=== PATIENT | female | born 1990 | race Caucasian/White ===

== ENCOUNTER 2017-08-07 14:22 | Inpatient (IN) | payer OTHER, SELFPAY | END 2017-08-10 09:00 | disposition home or self-care (01) | DRG 775 | PROVIDERS: Admitting Provider Nurse Practitioner Obstetrics & Gynecology; Visit Provider Nurse Practitioner Obstetrics & Gynecology | DX: O69.81X0 Labor and delivery complicated by cord around neck, without compression, not applicable or unspecified (principal); Z37.0 Single live birth; Z3A.37 37 weeks gestation of pregnancy | CPT/HCPCS: 59409; 36415; 59025; 81001; 82800; 85014; 85018; 85025; 86850; 86900; 86901; 87086; C1758; J0290; J2405 ==

== ENCOUNTER → 2017-12-30 18:07 | Outpatient (CLI) | payer OTHER, MEDICAID, SELFPAY | PROVIDERS: PCP Internal Medicine Adolescent Medicine; Visit Provider Nurse Practitioner | DX: J06.9 Acute upper respiratory infection, unspecified (principal) ==

== ENCOUNTER 2018-04-22 20:02 | Observation (INO) ==
[2018-04-22 20:24] LABS: Basophils # 0.1 K/mm3 (0-0.2); Basophils % 0.4 % (0.1-2.0); Eosinophils # 0.6 K/mm3 (0.0-0.4); Eosinophils % 4.4 % (0.1-12.0); Hematocrit 45.2 % (37.0-47.0); Hemoglobin 15.1 g/dL (12.2-16.2); Lymphocytes # 2.1 K/mm3 (0.7-4.5); Lymphocytes % 16.3 K/mm3 (10-50); Mean Corpuscular HGB Conc 33.5 g/dL (31.8-35.4); Mean Corpuscular Hemoglobin 29.4 pg (27.0-31.2); Mean Corpuscular Volume 87.7 fl (81-99); Mean Platelet Volume 7.8 fl (7.4-10.4); Monocytes # 0.6 K/mm3 (0.1-1.0); Monocytes % 4.3 % (1.7-9.3); Neutrophils # 9.7 K/mm3 (1.8-7.8); Neutrophils % 74.6 % (37.0-80.0); Platelet Count 232 K/mm3 (142-424); Red Blood Count 5.15 M/mm3 (4.20-5.40)
--- NOTE | 2018-04-22 20:24 | Emergency Department Note ---
ED Disposition Clinical Impression: Bronchitis Reactive airway disease Qualifiers: Asthma severity: moderate Asthma persistence: persistent Asthma complication type: with acute exacerbation Qualified Code(s): J45.41 - Moderate persistent asthma with (acute) exacerbation Disposition: Admitted as Observation Condition on Discharge: Good Referrals: Bola Eckert MD [Primary Care Provider] - - Critical Care Critical Care Time: No Attestation: On 04/22/18, the high probability of a clinically significant, sudden or life threatening deterioration of the following system(s) required my full and direct attention, intervention and personal management. The time I documented below is in addition to time spent performing reported procedures but includes the following listed in this critical care notation. Medical Decision Making - Medical Records Medical records reviewed: Yes: I reviewed the patient's medical records. - Jan Inquiry Pt receiving controlled substance: No Vital Signs: 04/22/18 20:06 04/22/18 20:33 04/22/18 20:49 Temperature 98.2 F 98.0 F Temperature Source Oral Oral Pulse Rate 91 H Pulse Rate [Right Brachial] 105 H 96 H Respiratory Rate 20 20 Blood Pressure [Right Arm] 148/98 116/74 Blood Pressure Mean [Right Arm] 114 88 Blood Pressure Source [Right Arm] Automatic Cuff Automatic Cuff Blood Pressure Position [Right Arm] Supine Sitting 02 Sat by Pulse Oximetry 97 98 Oxygen Delivery Method Nasal Cannula Room Air Oxygen Flow Rate (LPM) 2 04/22/18 21:03 Temperature Temperature Source Pulse Rate Pulse Rate [Right Brachial] 84 Respiratory Rate Blood Pressure [Right Arm] 119/58 Blood Pressure Mean [Right Arm] 78 Blood Pressure Source [Right Arm] Automatic Cuff Blood Pressure Position [Right Arm] Supine 02 Sat by Pulse Oximetry 98 Oxygen Delivery Method Oxygen Flow Rate (LPM) - Lab Data Lab results reviewed: Yes: I reviewed the patient's lab results. Lab Results 04/22/18 20:03: WBC 13.0 H, RBC 5.15, Hgb 15.1, Hct 45.2, MCV 87.7, MCH 29.4, MCHC 33.5, RDW 12.0, Plt Count 232, MPV 7.8, Neut % (Auto) 74.6, Lymph % (Auto) 16.3, [place] % (Auto) 4.3, Eos % (Auto) 4.4, Baso % (Auto) 0.4, Neut # (Auto) 9.7 H, Lymph # (Auto) 2.1, [place] # (Auto) 0.6, Eos # (Auto) 0.6 H, Baso # (Auto) 0.1 04/22/18 20:03: Sodium 142, Potassium 3.6, Chloride 104, Carbon Dioxide 27, Anion Gap 14.6, BUN 9, Creatinine 0.89, Estimated Creat Clear 121, Estimated GFR 76, Est GFR ( Amer) 91, Glucose 115 H, Calcium 9.6, Total Bilirubin 0.5, AST 10 L, ALT 26, Alkaline Phosphatase 94, Total Protein 8.6 H, Albumin 4.3, Globulin 4.3 H, Albumin/Globulin Ratio 1.0 L 04/22/18 20:03: Lactate 0.9 Result diagrams: 04/22/18 20:03 04/22/18 20:03 Orders (Tests/Meds): ED MEDICATIONS Generic Name Dose Route Start Last Admin Trade Name Freq PRN Reason Stop Dose Admin Ceftriaxone Sodium 1 gm/ 50 mls @ 100 mls/hr 04/22/18 20:45 04/22/18 20:37 Sodium Chloride IV 05/06/18 20:44 100 mls/hr Q24H MARIA ELENA Administration Protocol Discontinued Medications Generic Name Dose Route Start Last Admin Trade Name Freq PRN Reason Stop Dose Admin Albuterol Sulfate 2 puffs 04/22/18 21:32 Proventil-Hfa 90mcg/Puff Inhaler 04/22/18 21:33 ONCE ONE Albuterol/Ipratropium 3 ml 04/22/18 20:16 04/22/18 20:33 Duoneb 3ml Neb 04/22/18 20:17 3 ml ONCE ONE Administration Methylprednisolone Sodium Succinate 125 mg 04/22/18 20:34 04/22/18 20:37 Solu-Medrol 125mg/2ml Vial IV 04/22/18 20:35 125 mg ONCE ONE Administration Miscellaneous 1 unit 04/22/18 21:31 Aerochamber/Optihaler MC 04/22/18 21:32 ONCE ONE Miscellaneous 1 unit 04/22/18 21:31 Aerochamber/Optihaler MC 04/22/18 21:32 ONCE ONE Morphine Sulfate 4 mg 04/22/18 21:18 04/22/18 21:19 Morphine 4mg/Ml Syringe IV 04/22/18 21:19 4 mg ONCE ONE Administration Ondansetron HCl 4 mg 04/22/18 21:18 04/22/18 21:19 Zofran 4mg/2ml Vial IV 04/22/18 21:19 4 mg ONCE ONE Administration ORDERS Category Date Time Status XR chest 2V Stat Exams 04/22/18 20:15 Taken Blood Culture Stat Micro 04/22/18 20:03 Received - Radiology Data #1 Image(s): Chest Image Reviewed: Yes I reviewed the patient's radiology image Preliminary Findings: Normal/NAD - Physician Consults Physician Consulted: eliel Reason -: Admission Resp/SOB HPI - General Chief Complaint: Shortness of Breath/Dyspnea Stated Complaint: SOA Time Seen by Provider: 04/22/18 20:15 Mode of Arrival: Family Vehicle Limitations: No Limitations Description of Symptoms (Recalled from ER Triage Doc. 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 Complaint: shortness of breath, pain with inspiration Onset (ago): day(s) Severity: moderate Exacerbating factors: lying flat Associated symptoms: cough Treatment prior to arrival: none - Related Data Home oxygen amount: none Home Medications Medication Instructions Recorded Confirmed levonorgestrel 20 mcg/24 hr (5 1 insert INTRAUTERI ONCE 09/25/17 04/22/18 years) intrauterine device buPROPion HCl [Bupropion Xl] 150 mg PO QAM 04/22/18 04/22/18 Allergies Allergy/AdvReac Type Severity Reaction Status Date / Time cefditoren Allergy Unknown UNKNOWN Verified 10/29/17 13:41 clarithromycin [From Biaxin] Allergy Unknown I-RASH Verified 10/29/17 13:41 ibuprofen Allergy Unknown JOINTS Verified 10/29/17 13:41 SWELL Sulfa (Sulfonamide Allergy Unknown SWELLING Verified 10/29/17 13:41 Antibiotics) [facility] History I have reviewed the patient's past medical history: Yes Medical History: Reports:: Anxiety, Depression Denies:: Asthma Laterality Cases: Bilateral: Tonsillectomy, Other Other Surgeries: Yes: Other Amputation: No Fractures: No - Social History Smoking Status: Current every day smoker Tobacco Type: cigarettes Alcohol Intake: never Substance Use Type: denies use - Psychiatric History Expresses thoughts of harming self/others: None Suicide Plan Description: No Plan Pschychiatric History:: Reports:: Anxiety, Depression Family Hx:: No significant family history, Diabetes, Cancer, Heart Attack, Thyroid Disorder, Hypertension Para: 1 ROS Obtained: Yes All systems reviewed & no additional complaints - Constitutional Constitutional: Denies fever(s) - Eyes Eyes: Denies change in vision - ENT Ears, Nose, Mouth, and Throat: Denies sore throat, Denies throat swelling - Cardiovascular Cardiovascular: Reports chest pain, Reports dyspnea - Respiratory Respiratory: Yes as per HPI, Yes cough, Yes non-productive cough, No coughing up blood, Yes wheezing - Gastrointestinal Gastrointestingal: Denies: abdominal pain - Genitourinary Female Genitourinary: Denies abnormal vaginal bleeding, Denies hematuria - Musculoskeletal Musculoskeletal: Denies joint pain, Denies joint swelling - Integumentary/Breasts Skin/Breast: Denies rash - Neurologic Neurologic: Denies seizure-like activity Physical Exam - General General appearance: alert - Head Head exam: normocephalic - Eye Eye exam: Present: PERRL, EOMI - ENT ENT exam: Present: mucous membranes dry - Neck Neck exam: Present: trachea midline - Respiratory Respiratory exam: Present: wheezes. Absent: respiratory distress - Cardiovascular Cardiovascular exam: Present: regular rate. Absent: systolic murmur - Abdominal Exam Abdominal exam: Present: soft - Extremities Exam Extremities exam: Absent: calf tenderness - Neurological Exam Neurological exam: Present: alert, oriented X3, CN II-XII intact - Psychiatric Psychiatric exam: Present: normal affect - Skin Skin exam: Absent: rash
[2018-04-22 20:33] LABS: Albumin Level 4.3 gm/dL (3.4-5.0); Anion Gap 14.6 mEq/L (5-15); Bilirubin,Total 0.5 mg/dL (0.2-1.0); Calcium 9.6 mg/dL (8.5-10.1); Globulin 4.3 gm/dl (1.3-3.2); Potassium 3.6 mmoL/L (3.5-5.1); Total Protein,Serum 8.6 gm/dL (6.4-8.2)
[2018-04-23 06:39] LABS: Basophils % 0.1 % (0.1-2.0); Eosinophils % 0.1 % (0.1-12.0); Hematocrit 41.8 % (37.0-47.0); Hemoglobin 13.9 g/dL (12.2-16.2); Lymphocytes # 0.6 K/mm3 (0.7-4.5); Lymphocytes % 7.1 K/mm3 (10-50); Mean Corpuscular HGB Conc 33.4 g/dL (31.8-35.4); Mean Corpuscular Hemoglobin 29.5 pg (27.0-31.2); Mean Corpuscular Volume 88.6 fl (81-99); Mean Platelet Volume 8.1 fl (7.4-10.4); Monocytes # 0.2 K/mm3 (0.1-1.0); Monocytes % 1.8 % (1.7-9.3); Neutrophils # 7.6 K/mm3 (1.8-7.8); Platelet Count 211 K/mm3 (142-424); Red Blood Count 4.72 M/mm3 (4.20-5.40); Red Cell Distribution Width 12.1 % (11.5-17.5); White Blood Count 8.3 K/mm3 (4.8-10.8)
[2018-04-23 06:50] LABS: Calcium 8.7 mg/dL (8.5-10.1)
--- NOTE | 2018-04-23 07:26 | Pharmacy Consult Notes ---
[facility] Pharmacy VTE Monitoring - Patient Demographics Admission date: 04/22/18 Report Date: 04/23/18 Time: 07:25 Allergies/Adverse Reactions: Patient Allergies cefditoren Allergy (Unknown, Verified 10/29/17 13:41) UNKNOWN clarithromycin [From Biaxin] Allergy (Unknown, Verified 10/29/17 13:41) I-RASH ibuprofen Allergy (Unknown, Verified 10/29/17 13:41) JOINTS SWELL Sulfa (Sulfonamide Antibiotics) Allergy (Unknown, Verified 10/29/17 13:41) SWELLING Height: 1.63 m Weight: 81.647 kg Patient Problems: Current Active Problems Bronchitis (Acute) - VTE Risk Labs: VTE Related Lab Results Hgb 13.9 g/dL (12.2-16.2) 04/23/18 05:45 Hct 41.8 % (37.0-47.0) 04/23/18 05:45 Plt Count 211 K/mm3 (142-424) 04/23/18 05:45 BUN 9 mg/dL (7-18) 04/22/18 20:03 Creatinine 0.73 mg/dL (0.55-1.02) 04/23/18 05:45 Estimated Creat Clear 148 mL/min (0-300) 04/23/18 05:45 Was VTE Risk Assessment Performed: No VTE Score: 3 VTE Risk Level: Low Risk - Prophylaxis VTE Prophylaxis Ordered?: Yes Types of VTE Prophylaxis: TEDS Knee High Location of Applied Device: Bilateral Lower Extremeties - VTE Diagnosis Confirmed Treatment or plan recommended: Continue Current Treatment
[2018-04-23 07:42] LABS: Lymphocytes % 6 % (10-50); Monocytes % 1 % (2-9); Neutrophils % 93 % (42-76); Total Cells Counted 100
--- NOTE | 2018-04-23 10:12 | H&P/Discharge Summary ---
General - General Admission date:: 04/22/18 Discharge date: 04/23/18 *Admission Date: 04/22/18 *Chief complaint: Shortness of breath *History of present illness: Patient is a 27-year-old female with no comorbidities who presents with worsening shortness of breath over 1-2 days. Initially presented to the ER where she was afebrile but in mild respiratory distress. Treated with breathing treatment and lab work obtained. Admitted to medical service for management overnight and observation. Continued breathing treatments helped with dyspnea. Mycoplasma antigen positive. Patient had no acute events overnight. Remained afebrile. Improved this morning. Denies any syncope, chest pain, hemoptysis, nausea or vomiting. Reports having a child at home who is sick with similar symptoms that presented 2 days before her symptoms began. Required no oxygen overnight. Chest x-ray obtained consistent with no focal airspace disease, increased perihilar markings, but no concern for pneumonia. Received dose of R ocephin in the emergency room. [facility] History I have reviewed the patient's past medical history: Yes Medical History: Reports:: Anxiety, Depression Denies:: Asthma, Cancer, Diabetes Mellitus Type 1, Diabetes Mellitus Type 2, MRSA Laterality Cases: Bilateral: Tonsillectomy, Other Other Surgeries: Yes: Other Amputation: No Fractures: No - *Social History Educational Level: Attended College Smoking Status: Current every day smoker Tobacco Type: cigarettes Alcohol Intake: never Substance Use Type: denies use Occupational Status: employed Housing: apartment Household Members: children - Psychiatric History Expresses thoughts of harming self/others: None Suicide Plan Description: No Plan Pschychiatric History:: Reports:: Anxiety, Depression *Family Hx:: No significant family history, Diabetes, Cancer, Heart Attack, Thyroid Disorder, Hypertension Para: 1 Review of Systems - Review of Systems Review of systems:: pertinent systems reviewed and negative unless documented below - *Neurologic Denies seizure-like activity Exam Vital signs and Labs for Last 24 Hours: Temp Pulse Resp BP Pulse Ox 98.1 F 86 18 127/68 93 L 04/23/18 07:43 04/23/18 07:43 04/23/18 07:43 04/23/18 07:43 04/23/18 07:43 Laboratory Results - last 24 hr 04/22/18 20:03: WBC 13.0 H, RBC 5.15, Hgb 15.1, Hct 45.2, MCV 87.7, MCH 29.4, MCHC 33.5, RDW 12.0, Plt Count 232, MPV 7.8, Neut % (Auto) 74.6, Lymph % (Auto) 16.3, [place] % (Auto) 4.3, Eos % (Auto) 4.4, Baso % (Auto) 0.4, Neut # (Auto) 9.7 H, Lymph # (Auto) 2.1, [place] # (Auto) 0.6, Eos # (Auto) 0.6 H, Baso # (Auto) 0.1 04/22/18 20:03: Sodium 142, Potassium 3.6, Chloride 104, Carbon Dioxide 27, Anion Gap 14.6, BUN 9, Creatinine 0.89, Estimated Creat Clear 121, Estimated GFR 76, Est GFR ( Amer) 91, Glucose 115 H, Calcium 9.6, Total Bilirubin 0.5, AST 10 L, ALT 26, Alkaline Phosphatase 94, Total Protein 8.6 H, Albumin 4.3, Globulin 4.3 H, Albumin/Globulin Ratio 1.0 L 04/22/18 20:03: Lactate 0.9 04/22/18 20:05: Troponin I < 0.02 04/22/18 20:05: Mycoplasma pneumon IgM Reactive A 04/22/18 20:05: C-Reactive Protein 3.8 H 04/22/18 20:05: ESR 25 H 04/23/18 05:45: WBC 8.3 D, RBC 4.72, Hgb 13.9, Hct 41.8, MCV 88.6, MCH 29.5, MCHC 33.4, RDW 12.1, Plt Count 211, MPV 8.1, Neut % (Auto) 91.0 H, Lymph % (Auto) 7.1 L, [place] % (Auto) 1.8, Eos % (Auto) 0.1, Baso % (Auto) 0.1, Neut # (Auto) 7.6, Lymph # (Auto) 0.6 L, [place] # (Auto) 0.2, Eos # (Auto) 0.0, Baso # (Auto) 0.0, Total Counted 100, Neutrophils % (Manual) 93 H, Lymphocytes % (Manual) 6 L, Monocytes % (Manual) 1 L, Platelet Estimate Normal 04/23/18 05:45: Sodium 142, Potassium 4.0, Chloride 106, Carbon Dioxide 24, Anion Gap 16.0 H, BUN 8, Creatinine 0.73, Estimated Creat Clear 148, Estimated GFR 95, Est GFR ( Amer) 115 D, Glucose 142 H D, Calcium 8.7, Magnesium 1.9 I & O for Last 24 hours: Intake & Output 04/20/18 04/21/18 04/22/18 04/23/18 23:59 23:59 23:59 23:59 Weight 81.647 kg 81.647 kg - *Routine HEENT Exam Head: Present: normocephalic, atraumatic Eye: Present: EOMI ENT: Present: mucous membranes moist - *Routine Neck Exam Present: supple, full ROM. Absent: JVD - *Routine Respiratory Exam Present: wheezes (Intermittent and expiratory with end inspiratory squeak). Absent: accessory muscle use, CTA bilaterally, prolonged expiratory phase, rales, crackles - *Routine Cardiovascular Exam Present: RRR, Normal S1, Normal S2. Absent: murmur - *Routine Abdominal Exam Present: soft, normoactive bowel sounds. Absent: tenderness - *Routine Rectal Exam Patient deferred: visual exam - *Routine Exam Patient deferred: external exam - *Routine Extremities Exam Absent: cyanosis, clubbing, edema - *Routine Skin Exam Present: intact. Absent: cyanosis, erythema - *Routine Neurological Exam Present: alert, oriented X3, CN II-XII intact. Absent: altered mental status Hospital Course Hospital Course: Admitted to medicine service, monitored overnight. Required no supplemental oxygen. Mycoplasma antigen returned positive. Initiated patient on oral Levaquin to complete 7 day course. Provided with inhaler and spacer. Instructed to utilize inhaler every 4 hours while awake. Remained hemodynamically stopped. Tolerating regular diet and oral medications without adverse event. Medically stable for discharge home. Results Labs on day of discharge: Labs from last 24 hours 04/23/18 04/23/18 04/22/18 05:45 05:45 20:05 WBC 8.3 D RBC 4.72 Hgb 13.9 Hct 41.8 MCV 88.6 MCH 29.5 MCHC 33.4 RDW 12.1 Plt Count 211 MPV 8.1 Neut % (Auto) 91.0 H Lymph % (Auto) 7.1 L [place] % (Auto) 1.8 Eos % (Auto) 0.1 Baso % (Auto) 0.1 Neut # (Auto) 7.6 Lymph # (Auto) 0.6 L [place] # (Auto) 0.2 Eos # (Auto) 0.0 Baso # (Auto) 0.0 Total Counted 100 Neutrophils % (Manual) 93 H Lymphocytes % (Manual) 6 L Monocytes % (Manual) 1 L Platelet Estimate Normal ESR 25 H Sodium 142 Potassium 4.0 Chloride 106 Carbon Dioxide 24 Anion Gap 16.0 H BUN 8 Creatinine 0.73 Estimated Creat Clear 148 Estimated GFR 95 Est GFR ( Amer) 115 D Glucose 142 H D Lactate Calcium 8.7 Magnesium 1.9 Total Bilirubin AST ALT Alkaline Phosphatase Troponin I C-Reactive Protein Total Protein Albumin Globulin Albumin/Globulin Ratio Mycoplasma pneumon IgM 04/22/18 04/22/18 04/22/18 20:05 20:05 20:05 WBC RBC Hgb Hct MCV MCH MCHC RDW Plt Count MPV Neut % (Auto) Lymph % (Auto) [place] % (Auto) Eos % (Auto) Baso % (Auto) Neut # (Auto) Lymph # (Auto) [place] # (Auto) Eos # (Auto) Baso # (Auto) Total Counted Neutrophils % (Manual) Lymphocytes % (Manual) Monocytes % (Manual) Platelet Estimate ESR Sodium Potassium Chloride Carbon Dioxide Anion Gap BUN Creatinine Estimated Creat Clear Estimated GFR Est GFR ( Amer) Glucose Lactate Calcium Magnesium Total Bilirubin AST ALT Alkaline Phosphatase Troponin I < 0.02 C-Reactive Protein 3.8 H Total Protein Albumin Globulin Albumin/Globulin Ratio Mycoplasma pneumon IgM Reactive A 04/22/18 04/22/18 04/22/18 20:03 20:03 20:03 WBC 13.0 H RBC 5.15 Hgb 15.1 Hct 45.2 MCV 87.7 MCH 29.4 MCHC 33.5 RDW 12.0 Plt Count 232 MPV 7.8 Neut % (Auto) 74.6 Lymph % (Auto) 16.3 [place] % (Auto) 4.3 Eos % (Auto) 4.4 Baso % (Auto) 0.4 Neut # (Auto) 9.7 H Lymph # (Auto) 2.1 [place] # (Auto) 0.6 Eos # (Auto) 0.6 H Baso # (Auto) 0.1 Total Counted Neutrophils % (Manual) Lymphocytes % (Manual) Monocytes % (Manual) Platelet Estimate ESR Sodium 142 Potassium 3.6 Chloride 104 Carbon Dioxide 27 Anion Gap 14.6 BUN 9 Creatinine 0.89 Estimated Creat Clear 121 Estimated GFR 76 Est GFR ( Amer) 91 Glucose 115 H Lactate 0.9 Calcium 9.6 Magnesium Total Bilirubin 0.5 AST 10 L ALT 26 Alkaline Phosphatase 94 Troponin I C-Reactive Protein Total Protein 8.6 H Albumin 4.3 Globulin 4.3 H Albumin/Globulin Ratio 1.0 L Mycoplasma pneumon IgM DS: Diagnosis - Discharge Diagnosis (1) Primary atypical pneumonia (PAP) due to Mycoplasma Status: Acute Problem details: Initiate levofloxacin 500 mg daily for 7 days. Follow-up in clinic in 1-2 weeks. (2) Bronchitis Status: Acute Problem details: Continue breathing treatments as ordered with albuterol MDI and spacer every 4 hours for the next 3 days, as needed thereafter. Discharge Medications - Medications for Discharge Home Medication List at Discharge: Continue levonorgestrel 20 mcg/24 hr (5 years) intrauterine device 1 insert INTRAUTERI ONCE Escitalopram Oxalate [Lexapro] 20 mg PO DAILY Disposition Disposition: Home, Self-Care
== END 2018-04-23 13:27 | disposition home or self-care (01) ==
LOC: 2ND 20:02 → ER 20:02 → 2ND 22:29
PROVIDERS: ADMIT Internal Medicine Adolescent Medicine; ATTEND Internal Medicine Adolescent Medicine
CPT/HCPCS: 36415; 71020; 71046; 80048; 80053; 83605; 83735; 84484; 85007; 85025; 85651; 86140; 86738; 87040; 94640; 96365; 96375; 99285; G0378; J2405

== ENCOUNTER 2018-12-18 09:31 | Outpatient (CLI) | payer OTHER, SELFPAY | END 2018-12-18 10:14 | disposition home or self-care (01) | PROVIDERS: Visit Provider Nurse Practitioner Family | DX: J06.9 Acute upper respiratory infection, unspecified (principal) | CPT/HCPCS: 96372 ==

== ENCOUNTER → 2020-02-24 12:16 | Outpatient (CLI) | payer OTHER, SELFPAY ==
--- NOTE | 2020-02-24 12:50 | XR_ITS ---
PROCEDURE: XR CHEST PORTABLE CLINICAL HISTORY: COVID TESTING Shortness of breath and runny nose COMPARISON: CXR2V XR chest 2V from 04/22/2018 FINDINGS: The cardiomediastinal silhouette and pulmonary vascularity are within normal limits. The lungs are clear without infiltrates, suspicious nodules, or pleural effusions. No acute bony abnormalities. IMPRESSION: No acute findings. Dictated by: Benito Jackson MD 02/24/2020 13:46 Electronically signed by Benito Jackson MD in [place] 02/24/2020 13:46
[2020-02-24 12:51] LABS: Adenovirus,PCR Not Detected (NotDetected); Chlamydophila Pneumoniae, PCR Not Detected (NotDetected); Coronavirus 19, PCR Not Detected (NotDetected); Coronavirus 229E Not Detected (NotDetected); Coronavirus NL63 Not Detected (NotDetected); Coronavirus OC43 Not Detected (NotDetected); Coronovirus HKU1,PCR Not Detected (NotDetected); Human Metapneumovirus Not Detected (NotDetected); Influenza A, PCR Not Detected (NotDetected); Influenza AH1, 2009 Not Detected (NotDetected); Influenza AH1, PCR Not Detected (NotDetected); Influenza AH3,PCR Not Detected (NotDetected); Influenza B, PCR Not Detected (NotDetected); Mycoplasma Pneumoniae, PCR Not Detected (NotDected); Parainfluenza 1, PCR Not Detected (NotDetected); Parainfluenza 2, PCR Not Detected (NotDetected); Parainfluenza 3, PCR Not Detected (NotDetected); Parainfluenza 4, PCR Not Detected (NotDetected); Respiratory Syncytial Virus Not Detected (NotDetected)
[2020-02-24 12:55] LABS: Basophils # 0.1 K/mm3 (0-0.2); Basophils % 0.5 % (0.1-2.0); Eosinophils # 0.5 K/mm3 (0.0-0.4); Eosinophils % 4.5 % (0.1-12.0); Hematocrit 46.7 % (37.0-47.0); Hemoglobin 16.5 g/dL (12.2-16.2); Lymphocytes % 20.2 % (10-50); Mean Corpuscular HGB Conc 35.3 g/dL (31.8-35.4); Mean Corpuscular Hemoglobin 31.2 pg (27.0-31.2); Mean Corpuscular Volume 88.5 fl (81-99); Mean Platelet Volume 8.2 fl (7.4-10.4); Monocytes # 0.5 K/mm3 (0.1-1.0); Monocytes % 4.4 % (1.7-9.3); Neutrophils # 7.1 K/mm3 (1.8-7.8); Neutrophils % 70.4 % (37.0-80.0); Platelet Count 221 K/mm3 (142-424); Red Blood Count 5.27 M/mm3 (4.20-5.40); Red Cell Distribution Width 12.5 % (11.5-17.5); White Blood Count 10.1 K/mm3 (4.8-10.8)
[2020-02-24 13:08] LABS: Alanine Aminotransferase 22 U/L (12-78); Albumin/Globulin Ratio 1.4 (1.1-1.8); Alkaline Phosphatase 81 U/L (38-126); Aspartate Amino Transferase 28 U/L (14-36); Bilirubin,Total 0.5 mg/dl (0.2-1.3); Blood Urea Nitrogen 9 mg/dl (7-17); Calcium 9.8 mg/dl (8.4-10.2); Carbon Dioxide 26 mmol/L (22.0-30.0); Chloride 101 mmol/L (98-107); Estimated Glomerular Filt Rate 98 ml/min (>60); GFR (African American) 119 ML/MIN (>60); Globulin 3.7 g/dL (1.3-3.2); Glucose 105 mg/dl (74-100); Sodium 138 mmol/L (136-145); Total Protein,Serum 8.7 g/dl (6.3-8.2)
[2020-02-24 14:43] LABS: Bordetella Pertussis Detected (NotDetected); Rhinovirus/Enterovirus Detected (NotDetected)
== END ==
PROVIDERS: PCP Internal Medicine Adolescent Medicine; Visit Provider Internal Medicine Adolescent Medicine
DX: Z20.828 Contact with and (suspected) exposure to other viral communicable diseases (principal); J18.0 Bronchopneumonia, unspecified organism
CPT/HCPCS: 36415; 71045; 80053; 85025; 87581; 87633; 87798

== ENCOUNTER → 2020-04-29 08:49 | Outpatient (CLI) | payer OTHER, SELFPAY ==
[2020-04-29 15:06] LABS: Coronavirus 19 IgG Antibody Negative (Negative); Coronavirus 19 IgM Antibody Negative (Negative)
[2020-04-29 15:44] LABS: Vitamin B12 835 pg/mL (239-931)
[2020-04-29 16:39] LABS: Hemoglobin A1C 5.6 % (4.0-6.0)
== END ==
PROVIDERS: PCP Internal Medicine Adolescent Medicine; Visit Provider Family Medicine
DX: Z01.84 Encounter for antibody response examination (principal)
CPT/HCPCS: 82607; 83036; 86328

== ENCOUNTER → 2020-05-14 18:06 | Outpatient (CLI) | payer OTHER, SELFPAY ==
[2020-05-17 16:06] LABS: Varicella-Zoster Ab, IgM <0.91 index (0.00-0.90)
[2020-05-18 15:21] LABS: Varicella Zoster IgG 969 index (Immune >165)
== END ==
PROVIDERS: PCP Internal Medicine Adolescent Medicine; Visit Provider Internal Medicine Adolescent Medicine
DX: Z79.899 Other long term (current) drug therapy (principal); Z01.84 Encounter for antibody response examination
CPT/HCPCS: 36415; 86787

== ENCOUNTER → 2020-06-10 16:03 | Outpatient (CLI) | payer OTHER, SELFPAY | PROVIDERS: PCP Nurse Practitioner Family; Visit Provider Nurse Practitioner Family | DX: R06.02 Shortness of breath (principal); R00.2 Palpitations | CPT/HCPCS: 93270 ==

== ENCOUNTER → 2020-06-15 13:38 | Outpatient (CLI) | payer OTHER, SELFPAY ==
--- NOTE | 2020-06-15 | CA_ITS ---
APPROVED REPORT EXAM: Comprehensive 2D, Doppler, and color-flow Echocardiogram [employer] Consultant: Yvonne Lozano RDCS Ht: 5 ft 4 in Wt: 202lbs BSA: 1.96 BP: 110/70 mmHg Indications: BUBBLE STUDY DONE APPEARS NEGATIVE PALPITATIONS M-Mode Dimensions RVDd 3.22 cm (0.9-2.6) LA Diam 2.30 cm (1.9-4.0) LVDd 4.22 cm (3.5-5.7) Ao Diam 2.98 cm (2.0-3.7) LVDs 2.90 cm (3.5-5.7) IVSd 0.93 cm (0.6-1.1) PWd 0.79 cm (0.6-1.1) EF (Teich) 59.50% FS 31.30% EDV (Teich) 79.50 mL ESV (Teich) 32.20 mL LV Diastology E Decel Time 227.00 (160-240 msec) E/A Ratio 1.4 MED E' 9.70 (< 7 cm/sec) E'/MED E' Ratio 6.99 (>14) LAT E' 12.40 (<10 cm/sec) E/LAT E' Ratio 5.47 (>14) Mitral Valve MV E Max Kody. 68.00 (40-130 cm/s) MV A Velocity 47.00 (40-130 cm/s) E/A Ratio 1.43 MV Decel. Time 227.00 (160-240 ms) MV PHT 66.00 ms Left Ventricle Left atrium is normal size, left ventricle is normal size, there is no concentric left ventricular hypertrophy, visually estimated ejection fraction 55% with no regional wall motion abnormality, diastolic parameters are within normal range. Right Ventricle Right atrium and right ventricular normal size and contractility. Atria Intra-atrial septum is intact, there is no flow across the atrial septum, agitated saline contrast study fails to identify intracardiac shunt. Aortic Valve Aortic valve is grossly normal, there is no aortic stenosis or aortic insufficiency. Mitral Valve Mitral valve is grossly normal, there is mild mitral regurgitation. Tricuspid Valve Tricuspid valve grossly normal, there is mild tricuspid regurgitation, tricuspid regurgitation jet velocity is inadequate for calculation of the right ventricular systolic pressure. Pulmonic Valve Pulmonic valve is poorly visualized. Great Vessels Aortic root is normal size. Pericardium No significant pericardial effusion noted. Conclusion 1. Normal left ventricular size, preserved left ventricular systolic function, visually estimated ejection fraction 55% with no regional wall motion abnormality, diastolic parameters are within normal range. 2. Mild mitral and tricuspid regurgitation. 3. Agitated saline contrast study fails to identify intracardiac shunt. Electronically signed by : Bar Manzano, 06/15/2020 18:15:28
== END ==
PROVIDERS: PCP Internal Medicine Adolescent Medicine; Visit Provider Nurse Practitioner Family
DX: R00.2 Palpitations (principal); R06.02 Shortness of breath
CPT/HCPCS: 93306

== ENCOUNTER → 2020-08-10 08:03 | Outpatient (CLI) | payer OTHER, SELFPAY ==
[2020-08-10 08:09] VITALS: BMI 35.2
== END ==
PROVIDERS: PCP Internal Medicine Adolescent Medicine; Visit Provider Nurse Practitioner
DX: T78.49XA Other allergy, initial encounter (principal)

== ENCOUNTER 2020-10-26 19:11 | Outpatient (CLI) | payer OTHER, SELFPAY ==
[2020-10-26 21:26] VITALS: BMI 32.5
== END 2020-10-26 21:29 | disposition home or self-care (01) ==
PROVIDERS: PCP Internal Medicine Adolescent Medicine; Visit Provider Emergency Medicine
DX: M54.5 Low back pain (principal)

== ENCOUNTER 2020-11-08 09:00 | Outpatient (RCR) | payer OTHER, SELFPAY ==
--- NOTE | 2020-10-28 17:27 | HMH.PTOPEV ---
PT Outpatient Evaluation Rehab PT Outpatient Evaluation Start: 10/28/20 16:30 Freq: Status: Active Protocol: Document 10/28/20 16:30 WAQAR (Rec: 10/28/20 17:27 [id number]) Electronically Signed By Khang Gonzalez, CLARA 10/28/20 16:30 Outpatient Therapy Subjective History Subjective History Pt. is a 30 year old female who presents to outpatient PT clinic w/ complaints of acute and constant mid to lower back P! of insidious onset 2 wks. ago. 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 Pt. denies hearing/ feeling a popping/ripping/ tearing sensation. Pt. reports any kind of movement worsens her symptoms, and some symptom relief w/ supine position. Pt. denies having recent diagnostic imaging nor injections for current pathology. Pt. reports having a history of LBP!, but nothing like this. Pt. denies radicular symptoms into BUEs/ BLEs. Current medications include a muscle relaxer and Effexor. PMH includes chronic LBP!, Tonsillectomy, and a fractured coccyx. Chief Complaint Pain,Spasms,Stiff,Swelling Symptom Type Ache,Sharp,Dull Symptoms Relieved By Rest/Positioning,Ice, Prescription Meds Symptoms Aggravated By Bending/Stooping,Physical Activity,Twisting,Walking, Lifting,Sneeze/Coughing Prior Functional Limitations None Current Functional Limitations Reaching,Lifting,Housework, Dressing,Sleeping,Squatting, Recreation Activity,Walking, Bending/Stooping Symptom Description Constant and Continuous Level of pain today (0-10) 5 Pain scale - at its best (0-10) 2 Pain scale - at its worst (0-10) 8 Lumbopelvic Eval Posture Thoracic Spine Posture Standing Position Neutral Lumbar Spine Posture Standing Position Neutral Assistive device Assistive Devices None / NA Gait Observation General Gait Pattern Observation Hips Posterior to B
== END 2020-11-29 14:26 | disposition home or self-care (01) ==
LOC: PT.CARL 09:00
PROVIDERS: Visit Provider Internal Medicine Adolescent Medicine
DX: M54.5 Low back pain (principal)
CPT/HCPCS: 97010; 97014; 97110; 97140; 97163; G0283

== ENCOUNTER → 2020-11-25 09:20 | Outpatient (CLI) | payer OTHER, SELFPAY ==
[2020-11-25 09:20] VITALS: BMI 25.8
--- NOTE | 2020-11-25 09:25 | PC.NURSE ---
PATIENT STATES SHE HAS TAKEN ROCEPHINE IN THE PAST WITH NO REACTIONS
== END ==
PROVIDERS: PCP Internal Medicine Adolescent Medicine; Visit Provider Nurse Practitioner
DX: J06.9 Acute upper respiratory infection, unspecified (principal)

== ENCOUNTER → 2021-09-14 17:22 | Outpatient (CLI) | payer OTHER, SELFPAY | PROVIDERS: PCP Internal Medicine Adolescent Medicine; Visit Provider Nurse Practitioner | DX: Z11.52 Encounter for screening for COVID-19 (principal) ==

== ENCOUNTER → 2021-09-29 11:05 | Outpatient (CLI) | payer OTHER, SELFPAY ==
[2021-09-29 12:48] LABS: Basophils # 0.1 K/mm3 (0-0.2); Basophils % 1.6 % (0.1-2.0); Eosinophils # 0.3 K/mm3 (0.0-0.4); Eosinophils % 4.2 % (0.1-12.0); Hematocrit 41.1 % (37.0-47.0); Hemoglobin 14.1 g/dL (12.2-16.2); Lymphocytes # 2.7 K/mm3 (0.7-4.5); Lymphocytes % 37.3 % (10-50); Mean Corpuscular HGB Conc 34.3 g/dL (31.8-35.4); Mean Corpuscular Hemoglobin 30.8 pg (27.0-31.2); Mean Corpuscular Volume 89.9 fl (81-99); Mean Platelet Volume 8.9 fl (7.4-10.4); Monocytes # 0.4 K/mm3 (0.1-1.0); Monocytes % 5.4 % (1.7-9.3); Neutrophils # 3.8 K/mm3 (1.8-7.8); Neutrophils % 51.7 % (37.0-80.0); Platelet Count 255 K/mm3 (142-424); Red Blood Count 4.58 M/mm3 (4.20-5.40); Red Cell Distribution Width 12.4 % (11.5-17.5); White Blood Count 7.4 K/mm3 (4.8-10.8)
[2021-09-29 12:53] LABS: Alanine Aminotransferase 36 U/L (12-78); Albumin Level 4.2 g/dl (3.5-5.0); Albumin/Globulin Ratio 1.6 (1.1-1.8); Alkaline Phosphatase 43 U/L (38-126); Anion Gap 6.2 mEq/L (5-15); Aspartate Amino Transferase 35 U/L (14-36); Bilirubin,Total 0.5 mg/dl (0.2-1.3); Blood Urea Nitrogen 9 mg/dl (7-17); Carbon Dioxide 30 mmol/L (22.0-30.0); Chloride 104 mmol/L (98-107); Estimated Glomerular Filt Rate 98 ml/min (>60); GFR (African American) 118 ML/MIN (>60); Globulin 2.6 g/dL (1.3-3.2); Glucose 95 mg/dl (74-100); Potassium 4.2 mmoL/L (3.5-5.1); Sodium 136 mmol/L (136-145); Total Protein,Serum 6.8 g/dl (6.3-8.2)
[2021-09-29 12:59] LABS: C-Reactive Protein 2.2 mg/L (0-4)
--- NOTE | 2021-09-29 13:04 | XR_ITS ---
FINAL REPORT CLINICAL HISTORY: left foot pain, plantars wart on 1st metatarsal FINDINGS: LEFT FOOT Three views of the left foot demonstrate no acute fracture or dislocation. The visualized joint spaces are normally aligned. The soft tissues are unremarkable. IMPRESSION: No acute bony abnormality. Reviewed, Interpreted and Dictated by Trev Olivarez III, MD Transcribed by Nirmal Gomez Authenticated by Trev Olivarez III, MD on 09/29/2021 01:48:38 PM [facility]
[2021-09-29 13:37] LABS: Erythrocyte Sedimentation Rate 11 mm/hr (0-20)
== END ==
PROVIDERS: PCP Internal Medicine Adolescent Medicine; Visit Provider Nurse Practitioner Family
DX: M79.672 Pain in left foot (principal); L97.529 Non-pressure chronic ulcer of other part of left foot with unspecified severity
CPT/HCPCS: 36415; 73630; 80053; 85025; 85651; 86140

== ENCOUNTER 2022-02-26 17:38 | Emergency (ER) | payer OTHER, SELFPAY ==
[2022-02-26 17:40] VITALS: BP 131/71; PULSE 86; RESP 19; TEMP 36.7; O2SAT 98; BMI 34.3
--- NOTE | 2022-02-26 17:50 | HMH.EDUTC ---
[facility] [place] Clinical Impression: Acute maxillary sinusitis Qualifiers: Recurrence: non-recurrent Qualified Code(s): J01.00 - Acute maxillary sinusitis, unspecified Disposition: Home, Self-Care Condition on Discharge: Good Instructions: DI for Sinusitis Additional Instructions: Start antibiotic patient to take as ordered for a full length of time even if you feel better. Sinus infections do not get better overnight. It may take 2-3 days to notice much improvement so be sure to use conservative measures as discussed for symptoms. Flonase 1 spray each nostril daily to help with nasal congestion, sinus and ear pressure/information Increase fluids Humidifier/vaporizer as needed Tylenol and ibuprofen as needed for fever or pain. If symptoms do not improve or get worse return or be seen in the ER Follow-up with primary care this week Prescriptions: Azithromycin [Zithromax 250mg tab] 250 mg PO DIRECTED #6 tab Transmission Status: Pending to [facility] Referrals: Bola Eckert MD [Primary Care Provider] - Time of Disposition: 17:53 Medical Decision Making - Jan Inquiry Pt receiving controlled substance: No Vital Signs: 02/26/22 17:40 Temperature 98.0 F Temperature Source Oral Pulse Rate [Right Brachial] 86 Respiratory Rate 19 Blood Pressure [Right Arm] 131/71 Blood Pressure Mean [Right Arm] 91 Blood Pressure Source [Right Arm] Automatic Cuff Blood Pressure Position [Right Arm] Sitting 02 Sat by Pulse Oximetry 98 Oxygen Delivery Method Room Air Orders (Tests/Meds): ED MEDICATIONS Generic Name Dose Route Start Last Admin Trade Name Freq PRN Reason Stop Dose Admin Dexamethasone Sodium Phosphate 4 mg 02/26/22 17:49 Dexamethasone 4mg/Ml 1ml Vial IM 02/26/22 17:50 ONCE [place] [facility] [place] - General Chief complaint: Urgent [facility] Stated complaint: poss sinus inf Time Seen by Provider: 02/26/22 17:50 Mode of Arrival: Ambulatory Source of Information: Patient Limitations: No Limitations Description of Symptoms (Recalled from Triage Doc. by RN): PATIENT C/O POSSIBLE SINUS INFECTION SINCE SUNDAY HEENT Symptoms (Recalled from RN notes): Yes Resp Symptoms (Recalled from RN notes): No Skin Symptoms (Recalled from RN notes): No MS Symptoms (Recalled from RN notes): No Functional Status (Recalled from RN notes): WNL - History of Present Illness Provider Complaint: 31 yr old female presents for sinu congestion,pressure, cough and sore throat. - Related Data Home Medications Medication Instructions Recorded Confirmed venlafaxine 75 mg capsule,extended 75 mg PO DAILY 09/28/21 02/26/22 release 24 hr Previous Rx's Medication Instructions Recorded Azithromycin [Zithromax 250mg 250 mg PO DIRECTED #6 tab 02/26/22 tab] Allergies Allergy/AdvReac Type Severity Reaction Status Date / Time levofloxacin Allergy Intermediate ITCHING Verified 09/28/21 14:51 cefditoren Allergy Unknown UNKNOWN Verified 09/28/21 14:51 clarithromycin [From Biaxin] Allergy Unknown I-RASH Verified 09/28/21 14:51 ibuprofen Allergy Unknown JOINTS Verified 09/28/21 14:51 SWELL Sulfa (Sulfonamide Allergy Unknown SWELLING Verified 09/28/21 14:51 Antibiotics) - Worker's Comp Is this a Worker's Comp case?: No [facility] History - Hepatitis A Screen Attestation statement:: This patient has been screened for Hepatitis A risk factors. I have reviewed the patient's past medical history: Yes Medical History: Reports:: Anxiety, Depression Denies:: Asthma, Cancer, Diabetes Mellitus Type 1, Diabetes Mellitus Type 2, MRSA Laterality Cases: Bilateral: Tonsillectomy, Other Other Surgeries: Yes: Cholecystectomy, Other Amputation: No Fractures: No - Social History Smoking Status: Current every day smoker Tobacco Type: cigarettes Alcohol Intake: never Substance Use Type: denies use Occupational Status: employed Housing: apartment Household Members: children
[2022-02-26 17:55] VITALS: BP 131/71; PULSE 86; RESP 19; TEMP 36.7; O2SAT 98
== END 2022-02-26 17:57 | disposition home or self-care (01) ==
PROVIDERS: Emergency Provider Nurse Practitioner Family; PCP Internal Medicine Adolescent Medicine
DX: J01.00 Acute maxillary sinusitis, unspecified (principal)
CPT/HCPCS: 96372; 99212; G0463

== ENCOUNTER → 2022-06-28 13:57 | Outpatient (CLI) | payer OTHER, SELFPAY ==
--- NOTE | 2022-06-28 14:04 | US_ITS ---
PROCEDURE INFORMATION: Exam: US Left Breast, Complete Exam date and time: 06/28/2022 2:13 PM Age: 31 years old Clinical indication: Palpable Lt breast mass TECHNIQUE: Imaging protocol: Complete ultrasound of all four quadrants of the Left breast and the retroareolar regions, including ultrasound of the axilla when performed. COMPARISON: No relevant prior studies available. FINDINGS: Breast: Sonographic images of the left breast including the retroareolar region, all 4 quadrants and the axilla do not demonstrate any solid . Few scattered subcentimeter cysts are present including a 0.6 cm cluster of microcysts in the 12 o'clock axis 3 cm from the nipple where the patient reports a palpable abnormality. In a form the echogenic subcutaneous 0.5 cm mass in the 12 o'clock axis 5 cm from the nipple is consistent with the lipoma. No architectural distortion or acoustical shadowing. No skin thickening or axillary adenopathy. IMPRESSION: Palpable abnormality in the left breast corresponds sonographically to subcentimeter cystic change. A diagnostic left mammogram is recommended for correlative purposes. ASSESSMENT: BI-RADS Category 0: Incomplete- Need Additional Imaging Evaluation and/or Prior Mammograms for Comparison
== END ==
PROVIDERS: PCP Internal Medicine Adolescent Medicine; Visit Provider Nurse Practitioner Family
DX: N63.21 Unspecified lump in the left breast, upper outer quadrant (principal)
CPT/HCPCS: 76641

== ENCOUNTER → 2022-07-20 13:49 | Outpatient (CLI) | payer OTHER, SELFPAY ==
--- NOTE | 2022-07-20 13:52 | MM_ITS ---
PROCEDURE INFORMATION: Exam: Bilateral Diagnostic Breast Tomosynthesis Exam date and time: 07/20/2022 1:46 PM Age: 31 years old Clinical indication: Left breast palpable lump TECHNIQUE: Imaging protocol: Bilateral Diagnostic tomosynthesis and 2D mammography including computer-aided detection (CAD) when performed. Unilateral or bilateral exam. COMPARISON: Non FINDINGS: MAMMOGRAPHY: Breast composition: The breasts are heterogeneously dense, which may obscure small masses. A skin marker was placed over the palpable abnormality in the left 12 o'clock axis. The spot compression views demonstrate normal overlapping fibroglandular structures. There is no stellate mass, architectural distortion or suspicious microcalcifications in either breast to suggest malignancy. No skin thickening or axillary adenopathy. Sonogram performed 06/28/2022 did not demonstrate any suspicious findings. IMPRESSION: Palpable abnormality in the left breast corresponds to dense fibroglandular structures and underlying subcentimeter cystic change.Further evaluation of a palpable abnormality should be based on clinical grounds regardless of radiographic findings or lack thereof.Annual bilateral mammographic screening is recommended to commence at the age of 40 unless otherwise clinically indicated. ASSESSMENT: BI-RADS Category 2: Benign
== END ==
PROVIDERS: PCP Internal Medicine Adolescent Medicine; Visit Provider Nurse Practitioner Family
DX: N63.21 Unspecified lump in the left breast, upper outer quadrant (principal)
CPT/HCPCS: 77062; 77066; G0279

== ENCOUNTER → 2023-04-06 23:31 | Outpatient (CLI) | payer OTHER, SELFPAY ==
[2023-04-06 21:00] LABS: Amphetamine/Metha Screen,Urine Positive ng/ml (<1000)
[2023-04-06 21:01] LABS: Barbiturates Screen,Urine Negative ng/ml (<200); Benzodiazepines Screen,Urine Negative ng/ml (<200)
[2023-04-06 21:02] LABS: Cannabinoid Screen,Urine Negative ng/ml (<50)
[2023-04-06 21:03] LABS: Cocaine Screen,Urine Negative ng/ml (<300)
[2023-04-06 21:04] LABS: Opiate Screen,Urine Negative ng/ml (<300); Phencyclidine Screen,Urine Negative ng/ml (<25)
[2023-04-06 21:08] LABS: Methadone Screen,Urine Negative ng/ml (<300)
== END ==
PROVIDERS: PCP Physician Assistant; Visit Provider Nurse Practitioner Psychiatric/Mental Health
DX: Z91.89 Other specified personal risk factors, not elsewhere classified (principal); Z79.899 Other long term (current) drug therapy
CPT/HCPCS: 80305

== ENCOUNTER → 2023-04-24 16:09 | Outpatient (CLI) | payer OTHER, SELFPAY ==
[2023-04-24 12:35] LABS: Basophils # 0.1 K/mm3 (0-0.2); Basophils % 0.9 % (0.1-2.0); Eosinophils # 0.7 K/mm3 (0.0-0.4); Eosinophils % 9.7 % (0.1-12.0); Hemoglobin 14.4 g/dL (12.2-16.2); Lymphocytes # 2.3 K/mm3 (0.7-4.5); Lymphocytes % 33.1 % (10-50); Mean Corpuscular HGB Conc 34.2 g/dL (31.8-35.4); Mean Corpuscular Hemoglobin 30.4 pg (27.0-31.2); Mean Corpuscular Volume 88.9 fl (81-99); Monocytes # 0.5 K/mm3 (0.1-1.0); Monocytes % 7.4 % (1.7-9.3); Neutrophils # 3.4 K/mm3 (1.8-7.8); Neutrophils % 48.8 % (37.0-80.0); Platelet Count 266 K/mm3 (142-424); Red Blood Count 4.73 M/mm3 (4.20-5.40); Red Cell Distribution Width 12.5 % (11.5-17.5); White Blood Count 6.9 K/mm3 (4.8-10.8)
[2023-04-24 12:52] LABS: Alanine Aminotransferase 28 U/L (12-78); Albumin Level 3.9 g/dl (3.5-5.0); Albumin/Globulin Ratio 1.3 (1.1-1.8); Alkaline Phosphatase 68 U/L (38-126); Anion Gap 12.7 mEq/L (5-15); Aspartate Amino Transferase 26 U/L (14-36); Bilirubin,Total 0.2 mg/dl (0.2-1.3); Blood Urea Nitrogen 9 mg/dl (7-17); Carbon Dioxide 25 mmol/L (22.0-30.0); Chloride 105 mmol/L (98-107); Chol/HDL Ratio 2.6 (1-3.5); Cholesterol 170 mg/dl (140-200); Estimated Glomerular Filt Rate 83 ml/min (>60); GFR (African American) 100 ML/MIN (>60); Globulin 2.9 g/dL (1.3-3.2); Glucose 99 mg/dl (74-100); HDL Cholesterol 65 mg/dl (40-60); Potassium 3.7 mmoL/L (3.5-5.1); Sodium 139 mmol/L (136-145); Total Protein,Serum 6.8 g/dl (6.3-8.2); Triglycerides 55 mg/dl (30-150); VLDL Cholesterol 11 mg/dL (0-40)
[2023-04-24 13:05] LABS: Direct LDL Cholesterol 84.19 mg/dL (100-129)
[2023-04-24 13:11] LABS: 25-OH Vitamin D, Total 30.5 ng/mL (30-100)
[2023-04-24 13:18] LABS: Triiodothryronine (T3) Uptake 31 % (23.5-40.5)
[2023-04-24 13:19] LABS: Free Thyroxine Index 3.6 ug/dL (5.93-13.13); T4 (Thyroxine) 11.7 ug/dl (5.53-11.0)
[2023-04-24 13:44] LABS: Vitamin B12 974 pg/mL (239-931)
[2023-04-26 10:44] LABS: Thyroid Peroxidase Antibodies <9 IU/mL (0-34)
[2023-04-27 19:35] LABS: Thyroid Stimulating Immunoglob <0.10 IU/L (0.00-0.55)
== END ==
PROVIDERS: PCP Physician Assistant; Visit Provider Physician Assistant
DX: F41.9 Anxiety disorder, unspecified (principal); R89.9 Unspecified abnormal finding in specimens from other organs, systems and tissues; E66.9 Obesity, unspecified; Z68.34 Body mass index [BMI] 34.0-34.9, adult; Z79.899 Other long term (current) drug therapy
CPT/HCPCS: 80053; 80061; 82306; 82607; 84436; 84443; 84445; 84479; 85025; 86376

== ENCOUNTER → 2023-05-10 13:45 | Outpatient (CLI) | payer OTHER, SELFPAY ==
--- NOTE | 2023-05-10 13:45 | US_ITS ---
FINAL REPORT CLINICAL HISTORY: Hypothyroidism COMPARISON: None FINDINGS: THYROID ULTRASOUND: The right lobe of the thyroid gland measures 2.8 x 2.1 x 3.4 cm in size. There is a single nodule in the right lobe of the thyroid, hypoechoic, solid, and in the lower pole of the thyroid. This is classified as a TI-RADS category 4 nodule. The left lobe of the thyroid gland measures 3.7 x 1.6 x 1.4 cm in size. The echotexture is unremarkable, without evidence of a nodule in the left lobe. The isthmus of the thyroid is normal in appearance and measures 2 mm in thickness. IMPRESSION: Single 3.4 cm nodule in the right lobe of the thyroid gland, a TI-RADS category 4 nodule. Because of size of the nodule, no follow-up is required at this time. Reviewed, Interpreted and Dictated by Ray Metz MD Transcribed by Yanely Norris Authenticated and [facility]
== END ==
PROVIDERS: PCP Physician Assistant; Visit Provider Physician Assistant
DX: E03.9 Hypothyroidism, unspecified (principal)
CPT/HCPCS: 76536

== ENCOUNTER → 2023-05-23 07:44 | Outpatient (CLI) | payer OTHER, SELFPAY | PROVIDERS: PCP Physician Assistant; Visit Provider Physician Assistant | DX: E04.1 Nontoxic single thyroid nodule (principal) ==

== ENCOUNTER → 2023-06-08 10:42 | Outpatient (CLI) | payer OTHER, SELFPAY ==
--- NOTE | 2023-06-08 10:43 | MM_ITS ---
PROCEDURE INFORMATION: Exam: MG Bilateral Screening 3D Mammography Exam date and time: 06/08/2023 10:48 AM Age: 32 years old Clinical indication: Screening examination; Additional info: Breast cancer screening . Family history of breast carcinoma. TECHNIQUE: Imaging protocol: Bilateral Screening tomosynthesis and 2D mammography including computer-aided detection (CAD) when performed. COMPARISON: 1. MG MM DIG MAMM BI DX W/CAD 07/20/2022 1:46 PM 2. US BREAST LT COMPLETE 06/28/2022 2:13 PM FINDINGS: MAMMOGRAPHY: Breast composition: The breasts are heterogeneously dense, which may obscure small masses. Mass: No suspicious masses. Architectural distortion: No suspicious distortion. Calcifications: No suspicious calcifications. Asymmetric density: None. Skin thickening: None. Axillary adenopathy: None. IMPRESSION: 1. No mammographic evidence of malignancy. Annual screening is recommended unless otherwise clinically indicated. 2. Given the reported risk factors for this patient, a breast cancer risk assessment may prove useful for further evaluation. ASSESSMENT: BI-RADS Category 1: Negative
== END ==
PROVIDERS: PCP Physician Assistant; Visit Provider Physician Assistant
DX: Z12.31 Encounter for screening mammogram for malignant neoplasm of breast (principal)
CPT/HCPCS: 77063; 77067

== ENCOUNTER 2023-07-02 09:45 | Emergency (ER) | payer OTHER, SELFPAY ==
[2023-07-02 10:00] VITALS: BP 141/77; PULSE 73; RESP 18; TEMP 37; O2SAT 97; BMI 33.1
--- NOTE | 2023-07-02 10:09 | EXP.UTC ---
Discharge Plan Disposition Patient Disposition: Home, Self-Care Condition: Good Prescriptions Prescriptions: New prednisone 10 mg tablet 10 mg PO BID 5 Days Qty: 10 0RF amoxicillin [amoxicillin] 875 mg tablet 875 mg PO Q12H Qty: 20 0RF [id number]-fzzugditw-MP [Bromfed DM] 2-30-10 mg/5 mL Syrup 5 ml PO Q6H PRN (Reason: Cough) Qty: 240 0RF No Action vilazodone [Viibryd] 40 mg tablet 40 mg PO DAILY Qty: 30 2RF Rx Instructions: must administer with a meal/food dextroamphetamine-amphetamine [Adderall XR] 20 mg capsule,extended release 24hr 20 mg PO DAILY Qty: 30 0RF levothyroxine [Synthroid] 50 mcg tablet 50 mcg PO DAILY Qty: 30 3RF Referrals Follow up/Referrals: Lakeshia Diego PA [Primary Care Provider] - See instructions Activity Restrictions/Add. Instructions Additional Instructions/Restrictions: Drink plenty of fluids. Take tylenol or ibuprofen for pain or fever. Take the medications as directed. Follow up with your regular doctor. GO TO THE ER FOR ANY WORSENING SYMPTOMS Clinical Impressions Clinical Impression: Bronchitis, Sinusitis Stand Alone Forms Stand Alone Forms: Work/School Release Instructions Patient Instructions: DI for Sinusitis Discharge ED Provider: Diony Tian [facility] General Stated complaint: congestion, cough, sore throat Time Seen by Provider: 07/02/23 10:09 Related Data Previous Rx's Medication Instructions Recorded levothyroxine 50 mcg tablet 50 mcg PO DAILY #30 tabs 04/30/23 (Synthroid) amoxicillin 875 mg tablet 875 mg PO Q12H #20 tabs 07/02/23 sgbgnftxqcdebax-djjrnnumpiqmrpg-PR 5 ml PO Q6H PRN Cough #240 mL 07/02/23 2 mg-30 mg-10 mg/5 mL oral syrup (Bromfed DM) dextroamphetamine-amphetamine ER 20 mg PO DAILY #30 caps 07/02/23 20 mg 24hr capsule,extend release (Adderall XR) prednisone 10 mg tablet 10 mg PO BID 5 days #10 tabs 07/02/23 vilazodone 40 mg tablet (Viibryd) 40 mg PO DAILY #30 tabs 07/02/23 Allergies Allergy/AdvReac Type Severity Reaction Status Date / Time levofloxacin Allergy Intermediate ITCHING Verified 07/02/23 10:11 cefditoren Allergy Unknown UNKNOWN Verified 07/02/23 10:11 clarithromycin [From Biaxin] Allergy Unknown I-RASH Verified 07/02/23 10:11 ibuprofen Allergy Unknown JOINTS Verified 07/02/23 10:11 SWELL Sulfa (Sulfonamide Allergy Unknown SWELLING Verified 07/02/23 10:11 Antibiotics) [facility] Disclaimer: The information contained in this section may have been updated after the patient was seen, as this information can be updated by other users. Medical History (Updated 07/02/23 @ 10:25 by Diony Tian APRN) Anxiety Generalized anxiety disorder GERD (gastroesophageal reflux disease) Thyroid disease Surgical History History of cholecystectomy Hx of tonsillectomy Social History Smoking Status: Current every day smoker tobacco type: e-cigarettes alcohol intake: current substance use type: denies use current occupational status: employed Travel in the last 8 weeks: None household members: children housing: apartment number of children: 1 ROS Obtained: Yes All systems reviewed & no additional complaints except as documented Constitutional Constitutional: Reports poor appetite Eyes Eyes: Reports system reviewed and no additional complaints, except as documented ENT Ears, Nose, Mouth, and Throat: Reports as per HPI Cardiovascular Cardiovascular: Reports system reviewed and no additional complaints, except as documented and Denies chest pain Respiratory Respiratory: Denies shortness of breath, Reports chest congestion, Reports cough, Denies stridor and Denies wheezing Gastrointestinal Gastrointestingal: Reports system reviewed and no additional complaints, except as documented; Denies abdominal pain, diarrhea or vomiting Musculoskel
[2023-07-02 10:22] LABS: UTC Strep Screen (Rapid) Negative (Negative)
[2023-07-02 10:45] VITALS: BP 141/77; PULSE 73; RESP 18; TEMP 37; O2SAT 97
[2023-07-02 13:37] LABS: Influenza A, PCR Not Detected (NotDetected); Influenza B, PCR Not Detected (NotDetected)
[2023-07-02 14:05] LABS: Coronavirus 19, PCR Detected (NotDetected)
== END 2023-07-02 10:45 | disposition home or self-care (01) ==
PROVIDERS: Emergency Provider Nurse Practitioner Family; PCP Physician Assistant
DX: U07.1 COVID-19 (principal); J01.90 Acute sinusitis, unspecified; J20.9 Acute bronchitis, unspecified; R07.0 Pain in throat; R09.81 Nasal congestion; R05.9 Cough, unspecified; K21.9 Gastro-esophageal reflux disease without esophagitis; E03.9 Hypothyroidism, unspecified; F17.290 Nicotine dependence, other tobacco product, uncomplicated
CPT/HCPCS: 87636; 87880; 99212; 99214; G0463

== ENCOUNTER 2023-08-10 18:23 | Emergency (ER) | payer OTHER, SELFPAY ==
[2023-08-10] VITALS (7 sets, daily range): BP systolic 116–139; BP diastolic 66–84; PULSE 68–110; RESP 20–22; TEMP 36.6–36.7; O2SAT 96–100; BMI 34.3
--- NOTE | 2023-08-10 18:33 | PC.NURSE ---
Dr. Matute at bedside
--- NOTE | 2023-08-10 18:35 | CT_ITS ---
PROCEDURE INFORMATION: Exam: CT Abdomen And Pelvis With Contrast Exam date and time: 08/10/2023 7:05 PM Age: 32 years old Clinical indication: Abdominal pain; Additional info: Periumbilical pain TECHNIQUE: Imaging protocol: Computed tomography of the abdomen and pelvis with contrast. Radiation optimization: All CT scans at this facility use at least one of these dose optimization techniques: automated exposure control; mA and/or kV adjustment per patient size (includes targeted exams where dose is matched to clinical indication); or iterative reconstruction. Contrast material: ISOVUE; Contrast volume: 75 ml; Contrast route: IV; REPORTING DATA: Count of CT and Cardiac NM exams in prior 12 months: This patient has received 0 known CTs and 0 known cardiac nuclear medicine studies in the 12 months prior to the current study. COMPARISON: CR XR CHEST PORTABLE 02/24/2020 13:00 FINDINGS: Lungs: Minimal bibasilar atelectasis. Liver: Normal. No mass. Gallbladder and bile ducts: Gallbladder is absent. Pancreas: Normal. No ductal dilation. Spleen: Normal. No splenomegaly. Adrenal glands: Normal. No mass. Kidneys and ureters: Nonobstructing right renal calculus. Stomach and bowel: Liquid fecal contents of the colon suggesting diarrhea. Bowel wall thickening of portions of small bowel. There are dilated segments of small bowel without a transition point. Appendix: Unremarkable appendix. Intraperitoneal space: Unremarkable. No free air. No significant fluid collection. Vasculature: Unremarkable. No abdominal aortic aneurysm. Lymph nodes: Unremarkable. No enlarged lymph nodes. Urinary bladder: Unremarkable as visualized. Reproductive: Endovaginal cup. Bones/joints: Unremarkable. No acute fracture. Soft tissues: Tiny fat containing umbilical hernia. IMPRESSION: 1. Findings most likely represent enterocolitis with mild ileus. 2. Unremarkable appendix. 3. Nonobstructing right renal calculus.
--- NOTE | 2023-08-10 18:40 | HMH.EDGENADL ---
Discharge Plan Disposition Patient Disposition: Home, Self-Care Chief Complaint: Abdominal Pain Prescriptions Prescriptions: No Action levothyroxine [Synthroid] 50 mcg tablet 50 mcg PO DAILY Qty: 30 3RF vilazodone [Viibryd] 40 mg tablet 40 mg PO DAILY Qty: 30 2RF Rx Instructions: must administer with a meal/food dextroamphetamine-amphetamine [Adderall XR] 20 mg capsule,extended release 24hr 20 mg PO DAILY Qty: 30 0RF lisdexamfetamine [Vyvanse] 40 mg capsule 40 mg PO DAILY Qty: 30 0RF Referrals Follow up/Referrals: Provider,Referral, [Primary Care Provider] - See instructions Janel Lawton DO [Staff Physician] - See instructions Activity Restrictions/Add. Instructions Additional Instructions/Restrictions: At this time it was felt you are safe to be discharged home. If new or worsening symptoms please do not hesitate to return the emergency department. Please call and schedule an appointment for follow-up with Dr. Lawton. Clinical Impressions Clinical Impression: Abdominal pain Instructions Patient Instructions: DI for Acute Abdominal Pain Discharge ED Provider: Sunny Matute General Adult HPI General Chief complaint: Abdominal Pain Stated complaint: abd pain Time Seen by Provider: 08/10/23 18:26 History of Present Illness HPI narrative: Patient is a 32-year-old female with no chronic comorbidities, previous cholecystectomy who presents emergency department for evaluation abdominal pain. Onset was acute, over the last few hours, periumbilical. Patient is having difficulty getting comfortable with moderate to severe pain that is persistent. No vomiting, there is associated nausea. Patient is currently on her menstrual cycle. No dysuria. No other acute complaints at this time. Related Data Previous Rx's Medication Instructions Recorded levothyroxine 50 mcg tablet 50 mcg PO DAILY #30 tabs 04/30/23 (Synthroid) dextroamphetamine-amphetamine ER 20 mg PO DAILY #30 caps 07/30/23 20 mg 24hr capsule,extend release (Adderall XR) vilazodone 40 mg tablet (Viibryd) 40 mg PO DAILY #30 tabs 07/30/23 lisdexamfetamine 40 mg capsule 40 mg PO DAILY #30 caps 08/03/23 (Vyvanse) Allergies Allergy/AdvReac Type Severity Reaction Status Date / Time levofloxacin Allergy Intermediate ITCHING Verified 07/02/23 10:11 cefditoren Allergy Unknown UNKNOWN Verified 07/02/23 10:11 clarithromycin [From Biaxin] Allergy Unknown I-RASH Verified 07/02/23 10:11 ibuprofen Allergy Unknown JOINTS Verified 07/02/23 10:11 SWELL Sulfa (Sulfonamide Allergy Unknown SWELLING Verified 07/02/23 10:11 Antibiotics) [facility] Disclaimer: The information contained in this section may have been updated after the patient was seen, as this information can be updated by other users. Medical History (Updated 08/10/23 @ 22:13 by Sunny Matute MD) Anxiety Generalized anxiety disorder GERD (gastroesophageal reflux disease) Thyroid disease Surgical History History of cholecystectomy Hx of tonsillectomy Social History Smoking Status: Former smoker tobacco type: e-cigarettes alcohol intake: current substance use type: denies use current occupational status: employed Travel in the last 8 weeks: None household members: children housing: apartment number of children: 1 ROS Obtained: Yes Systems reviewed as appropriate & no additional complaints except as documented Physical Exam General General appearance: alert and other (Appearing in severe pain in bed) Head Head exam: atraumatic and normocephalic Eye Eye exam: Present PERRL and EOMI ENT ENT exam: Present mucous membranes moist Neck Neck exam: Present normal inspection Chest Chest inspection: Present normal inspection and symmetric chest wall rise Respiratory Respiratory exam: Present normal lung sounds bilaterally;
[2023-08-10 18:43] LABS: Microscopic, Urine URINE MICROSCOPIC (MICROSCOPIC)
[2023-08-10 18:43] LABS: Basophils % 0.3 % (0.1-2.0); Eosinophils # 0.3 K/mm3 (0.0-0.4); Eosinophils % 2.5 % (0.1-12.0); Hematocrit 44.2 % (37.0-47.0); Hemoglobin 14.9 g/dL (12.2-16.2); Mean Corpuscular HGB Conc 33.6 g/dL (31.8-35.4); Mean Corpuscular Hemoglobin 30.3 pg (27.0-31.2); Mean Platelet Volume 8.6 fl (7.4-10.4); Monocytes # 0.4 K/mm3 (0.1-1.0); Monocytes % 3.8 % (1.7-9.3); Neutrophils # 9.3 K/mm3 (1.8-7.8); Neutrophils % 84.4 % (37.0-80.0); Platelet Count 265 K/mm3 (142-424); Red Blood Count 4.91 M/mm3 (4.20-5.40); Red Cell Distribution Width 12.3 % (11.5-17.5); White Blood Count 11.1 K/mm3 (4.8-10.8)
--- NOTE | 2023-08-10 18:43 | PC.NURSE ---
Obtaining EKG at this time
--- NOTE | 2023-08-10 18:46 | ECG_ITS ---
APPROVED REPORT Exam: Resting ECG HR:83 bpm ECG Measurements Heart Rate 83 AXES MS 120 P 64 QRSd 83 QRS 79 QT 350 T 66 QTc 390 Conclusion SINUS RHYTHM WITH SINUS ARRHYTHMIA NORMAL ECG UNCONFIRMED REPORT Electronically signed by : Bola Eckert MD 08/15/2023 09:11:21
[2023-08-10 18:48] LABS: Chloride 102 mmol/L (98-107)
[2023-08-10 18:49] LABS: Potassium 3.9 mmoL/L (3.5-5.1); Sodium 138 mmol/L (136-145)
[2023-08-10 18:51] LABS: Alanine Aminotransferase 31 U/L (12-78); Blood Urea Nitrogen 9 mg/dl (7-17); Creatinine Clearance Estimated 143 mL/min (50-200); Estimated Glomerular Filt Rate 83 ml/min (>60); GFR (African American) 100 ML/MIN (>60)
[2023-08-10 18:52] LABS: Albumin Level 4.8 g/dl (3.5-5.0); Albumin/Globulin Ratio 1.5 (1.1-1.8); Alkaline Phosphatase 73 U/L (38-126); Anion Gap 11.9 mEq/L (5-15); Aspartate Amino Transferase 35 U/L (14-36); Bilirubin,Total 0.5 mg/dl (0.2-1.3); Calcium 9.1 mg/dl (8.4-10.2); Carbon Dioxide 28 mmol/L (22.0-30.0); Globulin 3.2 g/dL (1.3-3.2); Glucose 114 mg/dl (74-100); Lipase 60 U/L (23-300)
[2023-08-10 18:53] LABS: Coronavirus 19, PCR Not Detected (NotDetected); Influenza A, PCR Not Detected (NotDetected); Influenza B, PCR Not Detected (NotDetected)
[2023-08-10 18:57] LABS: Appearance,Urine CLEAR (Clear); Bilirubin,Urine Negative (Negative); Blood, Urine Negative (Negative); Color,Urine YELLOW (Yellow); Glucose,Urine (UA) Negative (Negative); Ketones,Urine Negative (Negative); Leukocyte Esterase,Urine Negative (Negative); Nitrate,Urine Negative (Negative); Protein,Urine Negative (Negative); Specific Gravity, Urine >= 1.030 (1.005-1.030); Urobilinogen,Urine 0.2 EU/dl (0.2)
[2023-08-10 18:58] LABS: HCG Qualitative, Serum Negative (Negative)
--- NOTE | 2023-08-10 19:03 | PC.NURSE ---
to ct at this time
--- NOTE | 2023-08-10 19:12 | PC.NURSE ---
patient back in room at this time.
[2023-08-10 19:40] LABS: Bacteria,Urine Trace /lpf
--- NOTE | 2023-08-10 20:13 | US_ITS ---
PROCEDURE INFORMATION: Exam: US Duplex Artery or Vein of the Abdominal and/or Reproductive Organs, Limited Ovaries Exam date and time: 08/10/2023 8:50 PM Age: 32 years old Clinical indication: Patient HX: Acutre onset of pelvic pain; Additional info: Torsion ruleout TECHNIQUE: Imaging protocol: Real-time duplex ultrasound scan of the arterial or venous flow with seals scale, color Doppler flow and spectral waveform analysis with image documentation. Limited duplex exam focused on the ovaries. Duplex exam was performed to evaluate for torsion and other vascular conditions. COMPARISON: CT ABDOMEN PELVIS W CON 10/08/2023 19:05 FINDINGS: Right ovary/adnexa: Unremarkable right ovarian arterial waveforms. Left ovary/adnexa: Unremarkable left ovarian arterial waveforms. IMPRESSION: No ovarian torsion. PROCEDURE INFORMATION: Exam: US Pelvis, Transvaginal Exam date and time: 08/10/2023 8:50 PM Age: 32 years old Clinical indication: Patient HX: Acutre onset of pelvic pain; Additional info: Torsion ruleout LABS AND CLINICAL REPORTS: Last menstrual period start date: 07/29/2023 TECHNIQUE: Imaging protocol: Real-time transvaginal pelvic ultrasound with image documentation. Transvaginal imaging was used for better evaluation of the endometrium, adnexa, and/or cervix. COMPARISON: CT ABDOMEN PELVIS W CON 10/08/2023 19:05 FINDINGS: Uterus: Uterus measures 8.1 cm x 5.04 cm x 3.93 cm. The endometrium is 5 mm in thickness. There are small echogenic foci around the endometrium with no CT correlate. This is a nonspecific appearance that could be related to a prior endometrial ablation. Tiny fibroids can also have this appearance. Right ovary/adnexa: Right ovary measures 3.3 cm x 2.01 cm x 1.8 cm. Right ovarian volume is 6.25 mL. Unremarkable right ovarian arterial waveforms. Left ovary/adnexa: Left ovary measures 2.64 cm x 2.03 cm x 1.64 cm. Left ovarian volume is 4.6 mL. Unremarkable left ovarian arterial waveforms. Intraperitoneal space: No free fluid. IMPRESSION: No acute findings.
== END 2023-08-10 22:41 | disposition home or self-care (01) ==
PROVIDERS: Emergency Provider Emergency Medicine
DX: R10.33 Periumbilical pain (principal); K52.9 Noninfective gastroenteritis and colitis, unspecified; K21.9 Gastro-esophageal reflux disease without esophagitis; E03.9 Hypothyroidism, unspecified; Z87.891 Personal history of nicotine dependence
CPT/HCPCS: 74177; 76830; 80053; 81001; 83690; 84703; 85025; 87636; 93005; 96361; 96374; 96375; 96376; 99285; J0131; Q9967

== ENCOUNTER 2023-09-19 11:08 | Outpatient (CLI) | payer OTHER, SELFPAY ==
[2023-09-19 11:36] LABS: Glucose,Fasting 102 mg/dl (74-100)
[2023-09-19 11:52] LABS: Hemoglobin A1C 5.1 % (4.0-6.0)
[2023-09-20 08:22] LABS: Estradiol 83.8 pg/mL (.); Progesterone 3.3 ng/mL (.); Testosterone,Total 31 ng/dL (8-60)
== END 2023-09-19 23:59 ==
PROVIDERS: PCP Physician Assistant; Visit Provider Obstetrics & Gynecology
DX: R10.9 Unspecified abdominal pain (principal); N95.1 Menopausal and female climacteric states; Z83.3 Family history of diabetes mellitus; Z79.899 Other long term (current) drug therapy
CPT/HCPCS: 36415; 82670; 82947; 83036; 84144; 84403

== ENCOUNTER 2023-11-27 12:19 | Outpatient (CLI) | payer OTHER, SELFPAY ==
[2023-11-27 12:37] LABS: Basophils # 0.1 K/mm3 (0-0.2); Basophils % 0.8 % (0.1-2.0); Eosinophils # 0.2 K/mm3 (0.0-0.4); Eosinophils % 2.2 % (0.1-12.0); Hematocrit 40.9 % (37.0-47.0); Hemoglobin 13.8 g/dL (12.2-16.2); Lymphocytes # 2.3 K/mm3 (0.7-4.5); Lymphocytes % 24.5 % (10-50); Mean Corpuscular HGB Conc 33.7 g/dL (31.8-35.4); Mean Corpuscular Hemoglobin 30.3 pg (27.0-31.2); Mean Corpuscular Volume 89.9 fl (81-99); Mean Platelet Volume 8.6 fl (7.4-10.4); Monocytes # 0.4 K/mm3 (0.1-1.0); Monocytes % 4.5 % (1.7-9.3); Neutrophils # 6.4 K/mm3 (1.8-7.8); Neutrophils % 67.9 % (37.0-80.0); Platelet Count 238 K/mm3 (142-424); Red Blood Count 4.55 M/mm3 (4.20-5.40); Red Cell Distribution Width 12.4 % (11.5-17.5); White Blood Count 9.4 K/mm3 (4.8-10.8)
[2023-11-27 12:44] LABS: Chloride 107 mmol/L (98-107)
[2023-11-27 12:45] LABS: Sodium 138 mmol/L (136-145)
[2023-11-27 12:47] LABS: Alanine Aminotransferase 26 U/L (12-78); Alkaline Phosphatase 52 U/L (38-126); Aspartate Amino Transferase 29 U/L (14-36); Bilirubin,Total 0.5 mg/dl (0.2-1.3); Blood Urea Nitrogen 9 mg/dl (7-17); Estimated Glomerular Filt Rate 72 ml/min (>60); GFR (African American) 87 ML/MIN (>60)
[2023-11-27 12:48] LABS: Albumin/Globulin Ratio 1.4 (1.1-1.8); Calcium 9.4 mg/dl (8.4-10.2); Carbon Dioxide 30 mmol/L (22.0-30.0); Globulin 2.9 g/dL (1.3-3.2); Glucose 107 mg/dl (74-100); Total Protein,Serum 6.9 g/dl (6.3-8.2)
[2023-11-27 13:05] LABS: HCG,Quantitative < 2 mIU/ml (0-5.42)
== END 2023-11-27 23:59 | disposition home or self-care (01) ==
LOC: LAB 12:19
PROVIDERS: PCP Physician Assistant; Visit Provider Obstetrics & Gynecology
DX: N92.1 Excessive and frequent menstruation with irregular cycle (principal)
CPT/HCPCS: 36415; 80053; 84702; 85025

== ENCOUNTER 2023-12-04 08:42 | Day surgery (SDC) | payer OTHER, SELFPAY ==
[2023-12-03 08:39] VITALS: BMI 34.4
[2023-12-04] VITALS (9 sets, daily range): BP systolic 118–149; BP diastolic 74–91; PULSE 72–101; RESP 16–18; TEMP 36.2–36.6; O2SAT 97–100
[2023-12-04] MEDS: LACTATED RINGERS 1000ML 1,000 ML 25 ML IV (09:01)
--- NOTE | 2023-12-04 09:15 | P.PNANES_ITS ---
[facility] Disclaimer: The information contained in this section may have been updated after the patient was seen, as this information can be updated by other users. Medical History Attention deficit disorder Endometriosis GERD (gastroesophageal reflux disease) Thyroid disease Anxiety Generalized anxiety disorder Surgical History Hx of tonsillectomy History of cholecystectomy Family History Family/Other Cancer Social History Smoking Status: Former smoker tobacco type: e-cigarettes alcohol intake: current substance use type: denies use current occupational status: employed Travel in the last 8 weeks: None household members: children housing: apartment number of children: 1 [facility] Anesthesia Checklist Patient Identification Patient Identification: Arm Band and Verbal (Name & ) Structural Data Admitted From: Home Planned Operative Procedure/s: Hyst/D & C Consent for Planned Operative Procedure(s) Verified: Yes NPO Status Verified Time NPO: 00:00 Additional verifications Anesthesia Reactions: No Hx Blood Transfusions: No Blood Transfusion Reaction: No Airway Assessment Mallampati Score:: Class II C-Spine Mobility Assessed: Yes TMJ Mobility Assessed: Yes Dentition: Good Dentition Neurological Assessment Level of Consciousness: Awake Hx Seizures: No Numbness or tingling in extremities: No Anesthesia Plan Anesthesia Risk discussed: Yes Anesthesia Plan: Verified ASA Class: II Anesthesia Type: General
--- NOTE | 2023-12-04 10:44 | EXP.OP.NOTE ---
Date of procedure: 12/04/23 Pre-op Diagnosis:: 1. Abnormal uterine bleeding 2. Menorrhagia 3. Dysmenorrhea 4. Dyspareunia Post-op Diagnosis:: 1. Abnormal uterine bleeding 2. Menorrhagia 3. Dysmenorrhea 4. Dyspareunia Procedure performed:: Hysteroscopy, dilation, MyoSure polypectomy, and NovaSure endometrial ablation Surgeon:: Janel Lawton DO FINAL FINISHER FORGING DIES:: Hakan Ortiz Anesthesia: GETA Estimated blood loss (mL): 20 Operative findings:: Findings: -EUA revealed an 8-week anteverted uterus with regular contour. no significant prolapse or support defects noted. Friable cervical os -Hysteroscopy suspicious for an arcuate uterus. Tubal ostia reviewed bilaterally. Operative note:: The patient was taken back to the OR where general anesthesia was obtained.? She was placed in the dorsal lithotomy position using yellow fin stirrups and sterilely prepped and draped in the usual fashion.? An in and out catheter was used to drain her bladder.? A timeout was performed.? A weighted speculum was used to visualize this cervix, a single-tooth tenaculum was applied to the anterior lip of the cervix. The cervix was only slightly dilated to allow entry to the ectocervix and hydrodisection was used to get the scope the rest of the way into the cavity. The hysterscope was inserted and findings as described above. Images were obtained of the cavity. Decision was made to proceed with the MyoSure for endometrial curettings collection. Device set up, primed and zeroed. The device was used collected and adequate sample. The hysteroscope was removed with careful attention to note the cervical length, 3cm. Uterus sounded to 8 cm. A piece of Telfa was placed in the vagina and a #2 sharp curette was used to curette the outer denis of the endometrium. Endometrial curettings on the Telfa were passed off the operative field to be sent to pathology with the MyoSure curettings. The Novasure device was opened, deployed, and noted to be functioning properly. The device was inserted to the fundus, set to a length of 5cm, and deployed to a width of 3.6cm. Cavity integrity was assessed and adequate. The ablation was started and a power of 99W was noted. Total ablation time was 1:01 minutes. The Novasure device was removed from the cervical os and the hysterscope was reinserted. The endometrium was noted to be successfully ablated and an image was obtained. At the conclusion of the procedure there was a fluid deficit of 150mLs. Total myosure cutting time was less than 2minutes. There is a small amount of bleeding noted at the anterior ectocervix. This was bovied but unable to be made hemostatic. A [id number]-wk-[id number] 0 Vicryl was placed and hemostasis was noted. All instruments were removed from the vagina. All counts were correct, per nursing. This concluded the procedure, the pt was awakened from anesthesia and transferred to the PACU in stable condition. The pt will be given 30mg IV Toradol postoperatively for pain control. Discussed her allergies preoperatively and patient stated that she had had Toradol before without any problems Condition: stable Disposition: PACU Specimens:: Endometrial curettings Complications:: None
--- NOTE | 2023-12-04 10:44 | EXP.ANES.I ---
[facility] Anesthesia Record Part I Anesthesia Record I Intake, IV Amount: 900 Hydration: Adequate Estimated blood loss (mL): 20 Urine output (mL): 50 Blood Products used (#): none Blood Pressure: 149/91 SaO2: 98 Pulse Rate: 85 Airway Patency: Patent Respiratory Rate: 16 Temperature: 98 F Patient is:: Drowsy and Stable Stable to PACU at:: 10:40
[2023-12-04] MEDS: HYDROMORPHONE 2MG/ML SYRINGE 0.5 MG IV ×4 (10:49→11:06)
[2023-12-04] MEDS: MEPERIDINE 25MG/ML 1ML SYRINGE 25 MG IV (10:53)
[2023-12-04] MEDS: ONDANSETRON 4MG/2ML VIAL 4 MG IV (11:12)
[2023-12-04] MEDS: OXYCODONE 5MG W/APAP 325MG TABLET 2 EACH PO (11:21)
--- NOTE | 2023-12-05 11:33 | P.PNANES_ITS ---
[facility] Anesthesia Record Part II Anesthesia Record Part II Discharge Time: 11:10 Destination: Surgical Day Care (OP Surgery) PACU nurse assessment reviewed?: Yes Patient Condition:: Good Anesthesia Complications:: None Swallowing reflex intact?: Yes Airway Patency: Patent Cyanosis?: No Blood Pressure: 138/84 SaO2: 98 Respiratory Rate: 16 Pulse Rate: 81 Temperature: 97.2 F Mental Status: Alert & Oriented Pain level:: 7 Nausea and/or vomitting:: None Intake, IV Amount: 0 Hydration: Adequate
[2023-12-05 11:34] VITALS: BP 138/84; PULSE 81; RESP 16; TEMP 36.2; O2SAT 98
== END 2023-12-04 11:49 | disposition home or self-care (01) ==
PROVIDERS: PCP Physician Assistant; Visit Provider Obstetrics & Gynecology
PROC: (CPT 58563; principal; 2023-12-04 10:15)
DX: N93.9 Abnormal uterine and vaginal bleeding, unspecified (principal); N92.0 Excessive and frequent menstruation with regular cycle; N94.6 Dysmenorrhea, unspecified; N94.10 Unspecified dyspareunia
CPT/HCPCS: 58563; J2405

== ENCOUNTER 2024-05-07 10:55 | Outpatient (CLI) | payer OTHER, SELFPAY ==
[2024-05-07 11:39] LABS: Benzodiazepines Screen,Urine Negative ng/ml (<200)
[2024-05-07 11:40] LABS: Amphetamine/Metha Screen,Urine Positive ng/ml (<1000)
[2024-05-07 11:41] LABS: Barbiturates Screen,Urine Negative ng/ml (<200); Cannabinoid Screen,Urine Negative ng/ml (<50)
[2024-05-07 11:42] LABS: Cocaine Screen,Urine Negative ng/ml (<300); Methadone Screen,Urine Negative ng/ml (<300)
[2024-05-07 11:43] LABS: Opiate Screen,Urine Negative ng/ml (<300)
[2024-05-07 11:44] LABS: Phencyclidine Screen,Urine Negative ng/ml (<25)
== END 2024-05-07 23:59 | disposition home or self-care (01) ==
LOC: LAB 10:56
PROVIDERS: PCP Physician Assistant
DX: F90.2 Attention-deficit hyperactivity disorder, combined type (principal)
CPT/HCPCS: 80307

== ENCOUNTER 2025-04-06 08:09 | Outpatient (CLI) | payer BC, SELFPAY ==
[2025-04-06 09:20] LABS: Amphetamine/Metha Screen,Urine Positive ng/ml (<1000); Benzodiazepines Screen,Urine Negative ng/ml (<200)
[2025-04-06 09:21] LABS: Barbiturates Screen,Urine Negative ng/ml (<200); Methadone Screen,Urine Negative ng/ml (<300)
[2025-04-06 09:23] LABS: Opiate Screen,Urine Negative ng/ml (<300)
[2025-04-06 09:24] LABS: Phencyclidine Screen,Urine Negative ng/ml (<25)
== END 2025-04-06 23:59 | disposition home or self-care (01) ==
LOC: LAB 08:12
PROVIDERS: PCP Nurse Practitioner Family; Visit Provider Registered Nurse
DX: F90.2 Attention-deficit hyperactivity disorder, combined type (principal)
CPT/HCPCS: 80307